=== PATIENT | female | born 1960 | race Caucasian/White ===

== ENCOUNTER 2020-04-12 07:15 | Outpatient (CLI) | payer OTHER, SELFPAY ==
--- NOTE | ~2020-04-12 | XR_ITS ---
XR lumbar spine 2-3V DATE: 04/12/2020 07:32 INDICATION: Low back pain. No injury. TECHNIQUE: AP, lateral, coned lateral lumbosacral views COMPARISON: 12/31/2011 lumbar spine FINDINGS: There is minimal dextroscoliosis of the thoracolumbar spine. No fracture or bone destruction or spondylolisthesis. The included lower thoracic and lumbar pedicles are intact. There is mild to moderate degenerative disc disease at L1-2 and L2-3 and moderately prominent degener ative disc disease at L3-4 and L4-5. There is mild degenerative disease at L5-S1. The sacroiliac joints are normal. IMPRESSION: Mild/moderate degenerative disc disease of the lumbar spine Reviewed, dictated and finalized at location A.
== END 2020-04-12 07:16 | disposition home or self-care (01) ==
PROVIDERS: PCP Family Medicine; Visit Provider Physician Assistant
DX: M51.36 Other intervertebral disc degeneration, lumbar region (principal)
CPT/HCPCS: 72100

== ENCOUNTER 2020-11-05 12:15 | Outpatient (CLI) | payer OTHER, SELFPAY ==
--- NOTE | ~2020-11-05 | XR_ITS ---
XR hip LT min 2V DATE: 11/05/2020 12:34 INDICATION: Left hip pain TECHNIQUE: AP, lateral and crosstable lateral views of left hip COMPARISON: None FINDINGS: No fracture or dislocation, avascular necrosis or bone destruction of the left hip. Left hi p joint space is well preserved. The pubic symphysis and included portions of the sacroiliac joints a ppear normal. IMPRESSION: Negative Reviewed, dictated and finalized at location A. SYCHOLOGIST IMPRESSION: Negative
== END 2020-11-05 12:16 | disposition home or self-care (01) ==
PROVIDERS: PCP Family Medicine; Visit Provider Physician Assistant
DX: M25.559 Pain in unspecified hip (principal)
CPT/HCPCS: 73502

== ENCOUNTER 2020-11-15 07:27 | Outpatient (CLI) | payer OTHER, SELFPAY ==
--- NOTE | ~2020-11-15 | MR_ITS ---
EXAMINATION: MR lumbar spine wo con DATE: 11/15/2020 08:27 INDICATION: Lumbar radiculopathy. TECHNIQUE: Magnetic resonance imaging (MRI) of the lumbar spine was performed without intravenous con trast. Sequences included sagittal T2-weighted FSE, sagittal T2-weighted FS FSE, sagittal T1-weighted FSE, and axial T2-weighted FSE. COMPARISON: Lumbar spine radiograph 04/12/2020 FINDINGS: There is 5 degrees dextrocurvature of thoracolumbar spine. There is mild chronic anterior w edging of T12 vertebral body. There are Schmorl's nodes at multiple levels. There is mildly decreased disc height at L1-L2 and L2-L3, moderately decreased disc height at L3-L4 and L4-L5, and mildly decr eased disc height at L5-S1. The distal spinal cord signal intensity is normal. The conus medullaris i s at L1. The following disc levels are specifically discussed: L1-L2: The disc is bulging and has an annular fissure. There is mild bilateral facet joint osteoarthr itis. There is mild bilateral neural foraminal stenosis. There is mild central canal stenosis. L2-L3: The disc is bulging and has an annular fissure. There is mild bilateral facet joint osteoarthr itis. There is mild bilateral neural foraminal stenosis. There is mild central canal stenosis. L3-L4: The disc is bulging and has an annular fissure. There is mild bilateral facet joint osteoarthr itis. There is mild bilateral neural foraminal stenosis. There is mild central canal stenosis. L4-L5: The disc is bulging and has an annular fissure. There is severe bilateral facet joint osteoart hritis. There is moderate bilateral neural foraminal stenosis. There is mild central canal stenosis. L5-S1: The disc is bulging and has an annular fissure. There is mild bilateral facet joint osteoarthr itis. There is mild left neural foraminal stenosis. There is no central canal stenosis. IMPRESSION: 1. Moderate lumbar spondylosis. Reviewed, dictated and finalized at location A. [employer]
== END 2020-11-15 07:28 | disposition home or self-care (01) ==
PROVIDERS: PCP Family Medicine; Visit Provider Physician Assistant
DX: M47.26 Other spondylosis with radiculopathy, lumbar region (principal)
CPT/HCPCS: 72148

== ENCOUNTER → 2021-08-29 11:30 | Outpatient (CLI) | payer OTHER, SELFPAY ==
--- NOTE | ~2021-08-29 | MM_ITS ---
EXAMINATION: MM screening tyler BI w chan HISTORY: Screening mammogram TECHNIQUE: Craniocaudal and mediolateral oblique 3-D tomosynthesis images were obtained and synthetic 2-D images were generated. Bilateral rotated lateral cc views. CAD analysis was submitted and interp reted. COMPARISON: 08/10/2018, 10/19/2013 bilateral digital screening mammogram examinations BREAST PARENCHYMAL COMPOSITION: There are scattered areas of fibroglandular density. FINDINGS: There is no evidence of suspicious mass, calcification, or architectural distortion to sugg est malignancy in either breast. There has been no suspicious interval change. IMPRESSION: 1. No mammographic evidence of malignancy. 2. Recommend routine screening mammography in one year. BI-RADS Category 1: Negative Reviewed, dictated and finalized at location A.
== END ==
PROVIDERS: PCP Family Medicine; Visit Provider Physician Assistant
DX: Z12.31 Encounter for screening mammogram for malignant neoplasm of breast (principal)
CPT/HCPCS: 77063; 77067

== ENCOUNTER → 2021-10-26 11:12 | Outpatient (CLI) | payer OTHER, SELFPAY ==
--- NOTE | ~2021-10-26 | DEXA_ITS ---
Bone Density Report Name: CHAN QUIGLEY Age: 61 Sex: Female Ethnicity: White Date of : 1960 Indication: postmenopausal; screening for osteoporosis; height loss; hysterectomy; Referring Provider: Michele Hurtado Study: Bone densitometry was performed. Exam Date: October 26, 2021 Accession number: [id number] Bone Density: Region BMD T-score Z-score Classification AP Spine (L1-L4) 1.116 0.6 2.0 Normal Femoral Neck (Left) 0.705 -1.3 0.0 Osteopenia Total Hip (Left) 0.946 0.0 1.0 Normal Femoral Neck (Right) 0.733 -1.0 0.2 Normal Total Hip (Right) 0.924 -0.1 0.8 Normal Total Hip Mean 0.935 -0.1 0.9 Normal World Health Organization criteria for BMD impression classify patients as: Normal (T-score at or above -1.0), Osteopenia (T-score between -1.0 and -2.5), or Osteoporosis (T-score at or below -2.5). 10-year Fracture Risk(1): Major Osteoporotic Fracture 7.3% Hip Fracture 0.5% Reported Risk Factors: [place] (), Neck BMD=0.705, BMI=29.7 (1) FRAX(R) Version 3.08. Fracture probability calculated for an untreated patient. Fracture probability may be lower if the patient has received treatment. Clinical Information Provided by Patient: Has the following medical conditions: Hysterectomy Patient maximum height was 69 Menopause Age: 49 Drinks caffeinated beverages Onset of menses at age 18 Number of children 0 Impression: The patient has low bone mass, based on the Left Femoral Neck T-score. The patient has an estimated ten-year risk of hip fracture of 0.5% and an estimated ten-year risk of major fracture of 7.3%, based on the WHO FRAX algorithm. Discussion: BONE DENSITY IS LOW AT ONE OR MORE SKELETAL SITES. This patient's lowest T-score is low at one or more skeletal sites. It meets the World Health Organization's (WHO) criteria for ?low bone mass? (T-score between -1.0 and -2.5). The patient's 10-year risk of fracture as calculated by FRAX is less than the threshold where pharmacological therapy is recommended by the National Osteoporosis Foundation (NOF). However, all treatment decisions require clinical judgment and consideration of individual patient factors, including patient preferences, comorbidities, previous drug use, risk factors not captured in the FRAX model (e.g., frailty, falls, vitamin D deficiency, increased bone turnover, interval significant decline in bone density) and possible under or overestimation of fracture risk by FRAX. The patient should follow a healthful lifestyle (good nutrition with adequate calcium and vitamin D, and appropriate weight-bearing exercise). Follow-Up: Consider repeating this study in 2 to 3 years to reassess this patient's status, or sooner if there is some new clinical indication. Reported by: [facility] on 10/26/2021 11:26:00 AM.
== END ==
PROVIDERS: PCP Family Medicine; Visit Provider Physician Assistant
DX: Z13.820 Encounter for screening for osteoporosis (principal); M85.852 Other specified disorders of bone density and structure, left thigh
CPT/HCPCS: 77080

== ENCOUNTER 2024-05-01 15:49 | Outpatient (CLI) | payer OTHER, SELFPAY ==
--- NOTE | ~2024-05-01 | XR_ITS ---
Left Knee Technique: AP, lateral, and sunrise views were obtained. Clinical History: Pain Findings: No fracture or dislocation is seen. Osseous alignment is anatomic. There is minimal spurrin g at the patella and intercondylar notch. Possible soft tissue swelling medially. No joint effusion i s seen. Impression: Minimal degenerative spurring, as above. Possible soft tissue swelling at the medial aspect of the knee, nonspecific. Reviewed, dictated and finalized at location M. Impression: Minimal degenerative spurring, as above. Possible soft tissue swelling at the medial aspect of the knee, nonspecific.
== END 2024-05-01 15:50 ==
LOC: GOSHIMG 15:50
PROVIDERS: PCP Family Medicine; Visit Provider Family Medicine
DX: M25.762 Osteophyte, left knee (principal); M25.561 Pain in right knee
CPT/HCPCS: 73564

== ENCOUNTER 2025-02-20 14:24 | Outpatient (CLI) | payer OTHER, SELFPAY ==
--- NOTE | ~2025-02-20 | MM_ITS ---
EXAMINATION: MM screening tyler BI w chan HISTORY: Screening TECHNIQUE: Craniocaudal and mediolateral oblique 3-D tomosynthesis images were obtained and synthetic 2-D images were generated. CAD analysis was submitted and interpreted. COMPARISON: Comparison to multiple prior studies sequentially, with oldest reviewed study dated 02/2018. BREAST PARENCHYMAL COMPOSITION: Not dense: There are scattered areas of fibroglandular density. FINDINGS: There is no evidence of suspicious mass, calcification, or architectural distortion to sugg est malignancy in either breast. There has been no suspicious interval change. IMPRESSION: 1. No mammographic evidence of malignancy. 2. Recommend routine screening mammography in one year. BI-RADS Category 1: Negative Reviewed, dictated and finalized at location B.
--- NOTE | ~2025-02-20 | DEXA_ITS ---
Bone Density Report Name: CHAN QUIGLEY Age: 64 Sex: Female Ethnicity: White Date of : 1960 Indication: postmenopausal; screening for osteoporosis; height loss; Referring Provider: Preston Flaherty Study: Bone densitometry was performed. Exam Date: February 20, 2025 Accession number: [id number] Bone Density: Region BMD T-score Z-score Classification AP Spine(L1-L4) 1.050 0.0 1.6 Normal Femoral Neck (Left) 0.707 -1.3 0.1 Osteopenia Total Hip (Left) 0.953 0.1 1.2 Normal Femoral Neck (Right) 0.675 -1.6 -0.2 Osteopenia Total Hip (Right) 0.917 -0.2 0.9 Normal Femoral Neck Mean 0.691 -1.4 0.0 Osteopenia Total Hip Mean 0.935 -0.1 1.1 Normal World Health Organization criteria for BMD impression classify patients as: Normal (T-score at or above -1.0), Osteopenia (T-score between -1.0 and -2.5), or Osteoporosis (T-score at or below -2.5). 10-year Fracture Risk(1): Major Osteoporotic Fracture 8.6% Hip Fracture 1.4% Reported Risk Factors: [place] (), Neck BMD=0.675, BMI=29.0, smoking (1) FRAX(R) Version 3.08. Fracture probability calculated for an untreated patient. Fracture probability may be lower if the patient has received treatment. Clinical Information Provided by Patient: Smokes Patient maximum height was 68 Menopause Age: 52 No regular weight bearing exercise Drinks caffeinated beverages Onset of menses at age 17 Number of children 0 Impression: The patient has low bone mass, based on the Right Femoral Neck T-score. The patient has risk factors, including: smoking. Discussion: BONE DENSITY IS LOW AT ONE OR MORE SKELETAL SITES. This patient's lowest T-score is low at one or more skeletal sites. It meets the World Health Organization's (WHO) criteria for ?low bone mass? (T-score between -1.0 and -2.5). The patient's 10-year risk of fracture as calculated by FRAX is less than the threshold where pharmacological therapy is recommended by the National Osteoporosis Foundation (NOF). However, all treatment decisions require clinical judgment and consideration of individual patient factors, including patient preferences, comorbidities, previous drug use, risk factors not captured in the FRAX model (e.g., frailty, falls, vitamin D deficiency, increased bone turnover, interval significant decline in bone density) and possible under or overestimation of fracture risk by FRAX. The patient should follow a healthful lifestyle (good nutrition with adequate calcium and vitamin D, and appropriate weight-bearing exercise). Follow-Up: Consider repeating this study in 2 to 3 years to reassess this patient's status, or sooner if there is some new clinical indication. Reported by: MARIN on 02/20/2025 2:55:00 PM. Reviewed, dictated and finalized at location A.
--- OUTSIDE RECORDS SUMMARY | 2025-02-20 15:43 | XMS_ITS | Clinical Summary ---
Author Organization [facility] Address [address] [place] [address] Care Team Providers Care Sleeping Car Service Attendant Name Role Phone Edwin Cyr MD Primary Care Provider [phone] Allergies No known active allergies Medications FLUoxetine 10 MG capsule Take 10 mg by mouth daily. 09/30/2021 Active gabapentin 300 MG capsule Take 300 mg by mouth daily. 08/05/2021 Active Social History Tobacco Use Types Packs/Day Years Used Date Smoking Tobacco: Never Smokeless Tobacco: Never Alcohol Use Standard Drinks/Week Comments Not Currently 0 (1 standard drink = 0.6 oz pur e alcohol) Comments Unknown Sex and Gender Information Value Date Recorded Sex Assigned at Not on file Legal Sex Female 1:38 PM LAP WINDER Gender Identity Not on file Sexual Orientation Not on file Last Filed Vital Signs Vital Sign Reading Time Taken Comments Blood Pressure 101/39 10/20/2021 7:55 AM LAP WINDER Pulse 54 10/20/2021 7:55 AM LAP WINDER Temperature 35.9 C (96.6 F) 10/20/2021 7:43 AM LAP WINDER Respiratory Rate 9 10/20/2021 7:55 AM LAP WINDER Oxygen Saturation 100% 10/20/2021 7:55 AM LAP WINDER Inhaled Oxygen Concentration - - Weight 83.9 kg (185 lb) 10/20/2021 6:17 AM LAP WINDER Height 175.3 cm (5' 9 ) 10/20/2021 6:17 AM LAP WINDER Body Mass Index 27.32 10/20/2021 6:17 AM LAP WINDER Plan of Treatment Health Maintenance Due Date Last Done Comments Cervical Cancer Screening Pa p Smear (Age 30 to 64) Every 3 Years 1960 Annual Physical 1965 Hepatitis C 1980 DTaP, Tdap and Td Vaccines ( 1 - Tdap) 1981 Cervical Cancer Screening Pa p with HPV Testing (Age 30 to 64) Every 5 Years 1992 Cervical Cancer Screening wi th HPV 1992 Mammogram Screening 2002 Zoster Vaccines (1 of 2) 2012 COVID-19 Vaccine (2 - 2023-2 5 season) 2024 2021 Colorectal Cancer Screening Colonoscopy (10 Years) 10/20/2031 10/20/2021, 10/20/2021 RSV Immunization or 60+ Years (1 - 1-dose 75+ series) 2037 Meningococcal B Vaccine Aged Out No l onger eligible based on patient's age to complete this topic Meningococcal Vaccine Aged Out No shiva amanda eligible based on patient's age to complete this topic Pneumococcal Vaccine: Pediatrics (0 to 5 Years) and At-Risk Patients (6 to 49 Years) Aged Out No longer eligible b ased on patient's age to complete this topic RSV Immunizations Under 20 Months Aged Out No longer eligible b ased on patient's age to complete this topic Procedures Procedure Name Priority Date/Time Associated Diagnosis Comments COLONOSCOPY Routine 10/20/2021 8:17 AM LAP WINDER from Last 3 Months or Most Recently Relevant to Health Maintenance Insurance [employer] Care Teams Sleeping Car Service Attendant Relationship Specialty Start Date End Date Edwin Cyr MD [address] [place] [address] PCP - General FAMILY PRACTICE 10/20/21
== END 2025-02-20 14:25 | disposition home or self-care (01) ==
PROVIDERS: PCP Internal Medicine; Visit Provider Internal Medicine
DX: Z12.31 Encounter for screening mammogram for malignant neoplasm of breast (principal); Z78.0 Asymptomatic menopausal state; M85.89 Other specified disorders of bone density and structure, multiple sites
CPT/HCPCS: 77063; 77067; 77080

== ENCOUNTER 2025-09-12 15:29 | Outpatient (CLI) | payer OTHER, SELFPAY ==
--- NOTE | ~2025-09-12 | XR_ITS ---
XR lumbar spine 2-3V Indication: BACK PAIN Comparison: None Findings: The vertebral heights are intact. No fracture or subluxation. Moderate to severe loss of disc height throughout Soft tissues unremarkable Impression: No acute abnormality. Reviewed, dictated and finalized at location P. TIONAL TRAINING TEACHER Impression: No acute abnormality.
--- NOTE | ~2025-09-12 | XR_ITS ---
EXAMINATION: XR sacrum coccyx min 2V, 09/12/2025 15:40 BUSINESS LAW PROFESSOR HISTORY: BACK PAIN COMPARISON: No comparisons available. Findings: No acute fracture or malalignment. There is no sclerosis of the sacroiliac joints, no bridging osteophyte formation, no erosions identified. Soft tissues unremarkable. Impression: No acute fracture or malalignment. Reviewed, dictated and finalized at location P. NESS LAW PROFESSOR Impression: No acute fracture or malalignment.
--- OUTSIDE RECORDS SUMMARY | 2025-09-12 20:57 | XMS_ITS | Clinical Summary ---
Author Organization [facility] Address [address] [place] [address] Care Team Providers Care Hand Patcher Name Role Phone Edwin Cyr MD Primary Care Provider [phone] Allergies No known active allergies Medications FLUoxetine [...] on file Legal Sex Female 1:38 PM HAT CHECKER Gender Identity Not on file Sexual Orientation Not on file Last Filed Vital Signs Vital Sign Reading Time Taken Comments Blood Pressure 101/39 10/20/2021 7:55 AM HAT CHECKER Pulse 54 10/20/2021 7:55 AM HAT CHECKER Temperature 35.9 C (96.6 F) 10/20/2021 7:43 AM HAT CHECKER Respiratory Rate 9 10/20/2021 7:55 AM HAT CHECKER Oxygen Saturation 100% 10/20/2021 7:55 AM HAT CHECKER Inhaled Oxygen Concentration - - Weight 83.9 kg (185 lb) 10/20/2021 6:17 AM HAT CHECKER Height 175.3 cm (5' 9) 10/20/2021 6:17 AM HAT CHECKER Body Mass Index 27.32 10/20/2021 6:17 AM HAT CHECKER Plan of Treatment Health Maintenance Due Date [...] wi th HPV 1992 Mammogram Screening 2002 Pneumococcal Vaccine: 50+ Years (1 of 1 - PCV) 2012 Zoster Vaccines (1 of 2) 2012 COVID-19 Vaccine (2 - 2024-2 6 season) 2025 2021 Influenza Adult (#1) 2025 08/23/2019, 09/26/2018 Colorectal Cancer Screening Colonoscopy (10 Years) 10/20/2031 10/20/2021, 10/20/2021 RSV Immunization or 60+ Years (1 - 1-dose 75+ series) 2037 Hepatitis A Vaccines Aged Out No long er eligible based on patient's age to complete this topic Meningococcal B Vaccine Aged Out No l [...] Diagnosis Comments COLONOSCOPY Routine 10/20/2021 8:17 AM HAT CHECKER from Last 3 Months or Most Recently Relevant to Health Maintenance Insurance [employer] Care Teams Hand Patcher Relationship Specialty Start Date End Date Edwin Cyr MD [address] [place] [address] PCP - General FAMILY PRACTICE 10/20/21
== END 2025-09-12 15:30 | disposition home or self-care (01) ==
PROVIDERS: PCP Internal Medicine; Visit Provider Nurse Practitioner Family
DX: M54.9 Dorsalgia, unspecified (principal)
CPT/HCPCS: 72100; 72220